=== PATIENT | female | born 1995 | race Caucasian/White ===

== ENCOUNTER 2018-08-16 16:22 | Emergency (ER) | payer BC ==
[~2018-08-16] VITALS: Ht 170.2 cm; Wt 113.2 kg
[2018-08-16 16:23] VITALS: BP 141/81
== END 2018-08-16 17:33 | disposition home or self-care (01) ==
LOC: M ED 16:22
DX: Z32.02 Encounter for pregnancy test, result negative (principal); F41.9 Anxiety disorder, unspecified; Z72.0 Tobacco use; Z97.5 Presence of (intrauterine) contraceptive device

== ENCOUNTER 2018-10-10 22:44 | Emergency (ER) | payer BC, OTHER ==
[~2018-10-10] VITALS: Ht 170.2 cm; Wt 113.6 kg
[2018-10-10 23:38] LABS: BASO # 0.1 10^3/uL (0.0-0.2); BASO % 0.6 % (0.0-1.0); EOS # 0.3 10^3/uL (0.0-0.50); EOS % 2.2 % (0.0-3.0); HEMATOCRIT 41.6 % (36.0-47.0); HEMOGLOBIN 14.6 g/dl (12.0-15.5); LYMPH # 3.5 10^3/uL (1.5-6.5); LYMPH % 30.8 % (24.0-44.0); MEAN CORPUSCULAR HEMOGLOBIN 31.2 pg (27.0-33.0); MEAN CORPUSCULAR HGB CONC 35.1 g/dl (32.0-36.5); MEAN CORPUSCULAR VOLUME 88.9 fl (80.0-96.0); MONO # 0.7 10^3/uL (0.0-0.8); MONO % 6.1 % (0.0-5.0); NEUTROPHILS # 6.8 10^3/uL (1.8-7.7); NEUTROPHILS % 59.9 % (36.0-66.0); PLATELET COUNT, AUTOMATED 280 10^3/uL (150-450); RED BLOOD COUNT 4.68 10^6/uL (4.00-5.40); WHITE BLOOD COUNT 11.4 10^3/uL (4.0-10.0)
[2018-10-10 23:58] LABS: HCG, SERUM QUALITATIVE NEGATIVE (NEGATIVE)
[2018-10-11 00:03] LABS: ALBUMIN 3.9 GM/DL (3.2-5.2); ALT/SGPT 54 U/L (12-78); BILIRUBIN,DIRECT 0.1 MG/DL (0.0-0.2); BILIRUBIN,TOTAL 0.4 MG/DL (0.2-1.0); BLOOD UREA NITROGEN 13 MG/DL (7-18); CARBON DIOXIDE LEVEL 23 MEQ/L (21-32); CHLORIDE LEVEL 111 MEQ/L (98-107); CREATININE FOR GFR 0.82 MG/DL (0.55-1.30); GLOMERULAR FILTRATION RATE > 60.0 (>60); GLUCOSE, FASTING 145 MG/DL (70-100); LIPASE 129 U/L (73-393); POTASSIUM SERUM 3.8 MEQ/L (3.5-5.1); SODIUM LEVEL 143 MEQ/L (136-145); TOTAL PROTEIN 7.3 GM/DL (6.4-8.2)
[2018-10-11 02:01] LABS: CHLAMYDIA DNA AMPLIFICATION NEGATIVE (NEGATIVE); GC DNA AMPLIFICATION NEGATIVE (NEGATIVE)
--- NOTE | 2018-10-11 02:22 | REPVR ---
EXAM: US Pelvis Complete, Transabdominal and US Pelvis, Transvaginal EXAM DATE/TIME: 10/11/2018 12:52 AM CLINICAL HISTORY: 23 years old, female; Pelvic pain. Evaluate IUD placement. TECHNIQUE: Imaging protocol: Real-time transabdominal and transvaginal pelvic ultrasound (complete) with image documentation. Transvaginal imaging was used for better evaluation of the endometrium and adnexa. COMPARISON: No relevant prior studies available. FINDINGS: Uterus/cervix: The anteverted uterus measures 7.8 cm x 3.8 cm x 5 cm. No myometrial mass is identified. The endometrium measures 3 mm in thickness. An intrauterine device is noted in the endometrial canal, which appears appropriately positioned from the images obtained. There is a trace amount of fluid in the endocervical canal. Right adnexa: The right ovary was not visualized due to obscuration by intestinal gas. Left adnexa: The left ovary was not visualized due to obscuration by intestinal gas. Free fluid: No free fluid is visualized in the pelvis from images obtained. Bladder: Not distended for optimal evaluation. IMPRESSION: Intrauterine device in the endometrial canal, which appears appropriately positioned. Electronically signed by: Jonn Manzanares On 10/11/2018 02:22:24 AM
[2018-10-11] MEDS ORDERED: KETOROLAC TROMETHAMINE 10 MG TAB PO ONE (02:30)
[2018-10-11] MEDS ORDERED: KETO10TAB PO (02:43)
[2018-10-11 02:50] VITALS: BP 129/81
== END 2018-10-11 02:52 | disposition home or self-care (01) ==
LOC: M ED 22:44
DX: R10.2 Pelvic and perineal pain (principal); Z72.0 Tobacco use; Z97.5 Presence of (intrauterine) contraceptive device

== ENCOUNTER 2019-04-21 18:53 | Emergency (ER) | payer OTHER ==
[~2019-04-21] VITALS: Ht 170.2 cm; Wt 125.0 kg
[~2019-04-21 18:53] MED LIST: KETO10TAB PO
[2019-04-21 18:54] VITALS: BP 135/75
== END 2019-04-21 21:14 | disposition home or self-care (01) ==
LOC: M ED 18:53
DX: Z32.01 Encounter for pregnancy test, result positive (principal); E66.9 Obesity, unspecified; F41.9 Anxiety disorder, unspecified; F17.200 Nicotine dependence, unspecified, uncomplicated

== ENCOUNTER → 2019-04-23 | Outpatient (CLI) | payer OTHER | LOC: M LAB 17:46 | PROVIDERS: ATTEND Student in an Organized Health Care Education/Training Program | DX: Z32.00 Encounter for pregnancy test, result unknown (principal) ==

== ENCOUNTER 2019-05-07 23:36 | Emergency (ER) | payer OTHER ==
[~2019-05-07] VITALS: Ht 170.2 cm; Wt 128.5 kg
[2019-05-07 23:37] VITALS: BP 140/78
[2019-05-07] MEDS ORDERED: PREN1CHW6 PO (23:49)
[2019-05-08 00:44] LABS: BASO # 0.1 10^3/uL (0.0-0.2); BASO % 0.5 % (0.0-1.0); EOS # 0.2 10^3/uL (0.0-0.5); EOS % 1.5 % (0.0-3.0); HEMATOCRIT 40.8 % (36.0-47.0); HEMOGLOBIN 13.8 g/dl (12.0-15.5); LYMPH # 3.5 10^3/uL (1.5-5.0); LYMPH % 27.7 % (24.0-44.0); MEAN CORPUSCULAR HEMOGLOBIN 30.1 pg (27.0-33.0); MEAN CORPUSCULAR HGB CONC 33.8 g/dl (32.0-36.5); MEAN CORPUSCULAR VOLUME 89.1 fl (80.0-96.0); MONO # 0.7 10^3/uL (0.0-0.8); MONO % 5.9 % (0.0-5.0); NEUTROPHILS % 63.9 % (36.0-66.0); PLATELET COUNT, AUTOMATED 267 10^3/uL (150-450); RED BLOOD COUNT 4.58 10^6/uL (4.00-5.40); WHITE BLOOD COUNT 12.5 10^3/uL (4.0-10.0)
[2019-05-08 01:38] LABS: ALBUMIN 3.9 GM/DL (3.2-5.2); ALT/SGPT 89 U/L (12-78); BILIRUBIN,DIRECT 0.1 MG/DL (0.0-0.2); BILIRUBIN,TOTAL 0.4 MG/DL (0.2-1.0); BLOOD UREA NITROGEN 10 MG/DL (7-18); CALCIUM LEVEL 9.1 MG/DL (8.5-10.1); CARBON DIOXIDE LEVEL 27 MEQ/L (21-32); CHLORIDE LEVEL 104 MEQ/L (98-107); CREATININE FOR GFR 0.71 MG/DL (0.55-1.30); GLOMERULAR FILTRATION RATE > 60.0 (>60); GLUCOSE, FASTING 132 MG/DL (70-100); HCG, SERUM QUANTITATIVE 14884 MIU/ML; LIPASE 110 U/L (73-393); POTASSIUM SERUM 3.8 MEQ/L (3.5-5.1); SODIUM LEVEL 139 MEQ/L (136-145)
--- NOTE | 2019-05-08 02:37 | REPVR ---
PROCEDURE INFORMATION: Exam: US First Trimester, Transabdominal and US , Transvaginal Exam date and time: 05/08/2019 2:09 AM Age: 23 years old Clinical indication: complicated by abdominal or pelvic pain; Lower; First trimester; Gestational age: 5w 6d; ; Additional info: Lower pelvic pain TECHNIQUE: Imaging protocol: Real-time transabdominal obstetrical ultrasound of the maternal pelvis and a first trimester , less than 14 weeks 0 days, with image documentation. Transvaginal imaging was used for better evaluation of the fetus and adnexa. COMPARISON: US PELVIC NON-OB COMPLETE 10/11/2018 12:47 AM FINDINGS: GESTATION: Gestation: There is a single intrauterine gestation and a visible yolk sac. Heart rate: 104 bpm Placenta: Unremarkable for the gestational age. No subchorionic bleed. Amniotic fluid: Amniotic and coelomic fluid are normal for gestational age. BIOMETRY: Estimated gestational age by US: 5 weeks 6 days [place]-Rump length: 0.24 cm Estimated due date by US: 01/02/2020 MATERNAL: Uterus: Unremarkable. Cervix: Unremarkable. Right adnexa: The right ovary was not visualized due to obscuration by intestinal gas. Left adnexa: The left ovary was not visualized due to obscuration by intestinal gas. Intraperitoneal: No intraperitoneal free fluid. IMPRESSION: Single live intrauterine with a gestational age by ultrasound of 5 weeks 6 days and estimated due date on 01/02/2020. A 2nd trimester obstetrical ultrasound is recommended at 19-20 weeks gestational age. Electronically signed by: Jonn Manzanares On 05/08/2019 02:37:02 AM
[2019-05-08] MEDS ORDERED: MACR100C43 PO (03:44)
[2019-05-08] MEDS ORDERED: NITROFURANTOIN (MACROBID) 100 MG CAP PO ONE (03:45)
== END 2019-05-08 03:58 | disposition home or self-care (01) ==
LOC: M ED 23:36
DX: O23.41 Unspecified infection of urinary tract in pregnancy, first trimester (principal); Z3A.01 Less than 8 weeks gestation of pregnancy

== ENCOUNTER → 2019-06-02 | Outpatient (REF) | payer OTHER ==
[~2019-06-02] MED LIST changes: +MACR100C43 PO; +PREN1CHW6 PO
[2019-06-02 16:08] LABS: INFLUENZA A AMPLIFICATION NEGATIVE (NEGATIVE); INFLUENZA B AMPLIFICATION POSITIVE (NEGATIVE)
== END ==
LOC: M LAB REF 15:12
PROVIDERS: ATTEND Physician Assistant
DX: J11.1 Influenza due to unidentified influenza virus with other respiratory manifestations (principal)

== ENCOUNTER → 2019-06-23 | Outpatient (CLI) | payer OTHER ==
--- NOTE | 2019-06-25 06:49 | ECGEPIP ---
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
== END ==
LOC: M EKG 15:06
PROVIDERS: ATTEND Nurse Practitioner Women's Health
DX: O24.111 Pre-existing type 2 diabetes mellitus, in pregnancy, first trimester (principal); E11.9 Type 2 diabetes mellitus without complications; Z3A.12 12 weeks gestation of pregnancy

== ENCOUNTER 2019-06-30 10:21 | Emergency (ER) | payer OTHER ==
[~2019-06-30] VITALS: Ht 170.2 cm; Wt 124.2 kg
[2019-06-30 10:21] VITALS: BP 133/66
[2019-06-30] MEDS ORDERED: NITR100C2 (10:28)
[2019-06-30] MEDS ORDERED: ASPI1CHW2 (10:28)
[2019-06-30] MEDS ORDERED: CEPH500C (10:28)
[2019-06-30] MEDS ORDERED: LIDOCAINE 2% MDV 20 ML VIAL SC ONE (10:45)
== END 2019-06-30 11:29 | disposition home or self-care (01) ==
LOC: M ED 10:21
DX: O99.712 Diseases of the skin and subcutaneous tissue complicating pregnancy, second trimester (principal); L02.01 Cutaneous abscess of face; Z79.82 Long term (current) use of aspirin; Z79.899 Other long term (current) drug therapy; Z3A.00 Weeks of gestation of pregnancy not specified

== ENCOUNTER 2019-07-04 14:16 | Emergency (ER) | payer OTHER ==
[~2019-07-04] VITALS: Ht 170.2 cm; Wt 121.5 kg
[~2019-07-04 14:16] MED LIST changes: +ASPI1CHW2; +CEPH500C; +NITR100C2
[2019-07-04 14:17] VITALS: BP 139/75
== END 2019-07-04 14:47 | disposition home or self-care (01) ==
LOC: M ED 14:16
DX: Z48.01 Encounter for change or removal of surgical wound dressing (principal)

== ENCOUNTER 2019-08-24 18:36 | Outpatient (CLI) | payer OTHER ==
[2019-08-24 18:57] VITALS: BP 131/61
--- NOTE | 2019-08-24 19:25 | IPNPDOC ---
Text Note Date of Service The patient was seen on 08/24/19. NOTE Patient is 24yo at 21wks. C/o nausea and tiredness and "sugars being off". No contractions. No loss of fluid or bleeding. FG Log: Fasting <100, PP 120s with 1 at 150 PE: VS WNL GEN NAD, Comfortable SVE: closed/thick/high FHT: 150s A/P: Fetus reassuring. Patient not in labor and no rupture of membranes. Patient given labor precautions, rupture of membranes precautions and hydration precautions. Sent back to ER for further DM evaluation. From my standpoint, DM appears controlled. Possibly viral illness. VS,Fishbone, I+O VS, Fishbone, I+O Vital Signs Date Time Temp Pulse Resp B/P (MAP) Pulse Ox O2 Delivery O2 Flow Rate FiO2 08/24/19 18:57 98.2 90 18 131/61 (84) Elisa Donaldson MD Aug 24, 2019 19:25
[2019-08-24] MEDS ORDERED: PREN27TA3 (19:51)
[2019-08-24] MEDS ORDERED: INSUN (19:51)
== END 2019-08-24 19:20 | disposition other institution (70) ==
LOC: M LDO 18:36
PROVIDERS: ATTEND Obstetrics & Gynecology
DX: O26.892 Other specified pregnancy related conditions, second trimester (principal); R11.0 Nausea; R51 Headache; Z3A.21 21 weeks gestation of pregnancy
CPT/HCPCS: G0378; G0463

== ENCOUNTER 2019-08-24 19:39 | Emergency (ER) | payer OTHER ==
[~2019-08-24] VITALS: Ht 170.2 cm; Wt 126.9 kg
[2019-08-24] MEDS ORDERED: PREN27TA3 (19:51)
[2019-08-24] MEDS ORDERED: INSUN (19:51)
[2019-08-24 21:20] LABS: BASO # 0.1 10^3/uL (0.0-0.2); BASO % 0.3 % (0.0-1.0); EOS # 0.2 10^3/uL (0.0-0.5); EOS % 1.2 % (0.0-3.0); HEMATOCRIT 36.9 % (36.0-47.0); HEMOGLOBIN 12.5 g/dl (12.0-15.5); LYMPH # 3.7 10^3/uL (1.5-5.0); LYMPH % 22.8 % (24.0-44.0); MEAN CORPUSCULAR HEMOGLOBIN 29.6 pg (27.0-33.0); MEAN CORPUSCULAR HGB CONC 33.9 g/dl (32.0-36.5); MEAN CORPUSCULAR VOLUME 87.4 fl (80.0-96.0); MONO # 0.8 10^3/uL (0.0-0.8); NEUTROPHILS # 11.3 10^3/uL (1.5-8.5); NEUTROPHILS % 70.1 % (36.0-66.0); PLATELET COUNT, AUTOMATED 290 10^3/uL (150-450); RED BLOOD COUNT 4.22 10^6/uL (4.00-5.40); WHITE BLOOD COUNT 16.1 10^3/uL (4.0-10.0)
[2019-08-24 23:05] VITALS: BP 134/68
== END 2019-08-24 23:06 | disposition home or self-care (01) ==
LOC: M ED 19:39
DX: O26.892 Other specified pregnancy related conditions, second trimester (principal); K52.9 Noninfective gastroenteritis and colitis, unspecified; O99.63 Diseases of the digestive system complicating the puerperium; O24.429 Gestational diabetes mellitus in childbirth, unspecified control; Z79.4 Long term (current) use of insulin; Z3A.21 21 weeks gestation of pregnancy

== ENCOUNTER → 2019-12-07 | Outpatient (CLI) | payer OTHER ==
[~2019-12-07] MED LIST changes: +IBUP80TA PO; +INSUN SC; +ONDA4TAB6 PO; +PREN27TA3
--- NOTE | 2019-12-07 10:02 | REPVR ---
PROCEDURE INFORMATION: Exam: US Biophysical Profile Without Non-Stress Test Exam date and time: 12/07/2019 9:28 AM Age: 24 years old Clinical indication: Abnormal findings; Abnormal radiological screening; Third; ; Additional info: Non- reactive nst TECHNIQUE: Imaging protocol: US biophysical profile without non-stress testing. COMPARISON: US PELVIC NON-OB COMPLETE 10/11/2018 12:47 AM FINDINGS: heart rate: 130 bpm. Presentation: Cephalic. Placenta: Anterior. No previa. Amniotic fluid index: 12.3 cm (deepest pocket 4.5 cm). BIOPHYSICAL PROFILE: Breathin/2 Gross body movements: 2/2 tone: 2/2 Qualitative amniotic fluid: 2/2 Biophysical Profile Score: 8/8 DOPPLER: Umbilical artery Doppler: S/D ratio 2.5. MATERNAL ANATOMY: Cervix: Closed, 3.6 cm in length. IMPRESSION: Biophysical profile score is 8 out of 8. Electronically signed by: Alfa Cameron On 12/07/2019 10:02:10 AM
== END ==
LOC: M RAD 09:19
PROVIDERS: ATTEND Obstetrics & Gynecology
DX: Z34.83 Encounter for supervision of other normal pregnancy, third trimester (principal); Z3A.36 36 weeks gestation of pregnancy

== ENCOUNTER 2019-12-29 12:00 | Inpatient (IN) | payer OTHER ==
[~2019-12-29] VITALS: Ht 170.2 cm; Wt 133.4 kg
[2019-12-29] VITALS (10 sets, daily range): BP systolic 108–133; BP diastolic 53–75
[~2019-12-29 12:00] MED LIST changes: -IBUP80TA PO; -ONDA4TAB6 PO
[2019-12-29] MEDS ORDERED: INSUN SC (12:28)
[2019-12-29] MEDS ORDERED: PENICILLIN G POTASSIUM IV 5 MU in D5W MINI-BAG PLUS 100 ML IV STA (12:36)
[2019-12-29] MEDS: miSOPROStol 50 MCG 1/2 TAB (S0191) PO SCH ×3 (13:27→22:16)
[2019-12-29 13:29] LABS: HEMOGLOBIN 13.1 g/dl (12.0-15.5); MEAN CORPUSCULAR HEMOGLOBIN 29.8 pg (27.0-33.0); MEAN CORPUSCULAR HGB CONC 34.5 g/dl (32.0-36.5); MEAN CORPUSCULAR VOLUME 86.6 fl (80.0-96.0); PLATELET COUNT, AUTOMATED 278 10^3/uL (150-450); RED BLOOD COUNT 4.39 10^6/uL (4.00-5.40); WHITE BLOOD COUNT 12.3 10^3/uL (4.0-10.0)
[2019-12-29] MEDS ORDERED: INSULIN REGULAR IN 0.9 % NACL 100 UNIT in IV 1 EA IV SCH ×2 (13:40)
--- NOTE | 2019-12-29 13:40 | HPEPDOC ---
Obstetrical History & Physical General Date of Admission Dec 29, 2019 at 12:00 History of Present Illness 24yo G1 @ 39w3d presents for IOL for A2GDM. Has been using insulin during and also smoking 5 cigs daily. 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 Insulin Human NPH (Novolin N) 100 Unit/1 Ml Vial, 12 UNITS SC DAILY Pt states she takes daily at 1130 before lunch. Miscellaneous Medications Aspirin (Aspirin) 81 Mg Tab.chew Pnv,Calcium 72/Iron/Folic Acid ( Vitamin Plus Low Iron) 1 Each Tablet Physical Examination Physical Examination GENERAL: Alert and oriented times three. BREAST: . ABDOMEN: Gravid and non-tender to touch. FETUS: Is vertex (VTX) by sterile vaginal examination (SVE), fetus is vertex (VTX) by [place]. HEART RATE: Regular rate and rhythm. LUNGS: Clear to auscultation (CTA). Laboratory Data 24H LABS Laboratory Tests 2 12/29/19 12:08: Serology Scanned Report Hepatitis B Testing Pertinent Laboratoy Data Blood Type: A+ RBC Antibody Screen: Negative HIV: Negative Hepatitis B: Negative Rapid Plasma Reagin: Nonreactive Rubella: Immune Chlamydia/Gonorrhea: Negative Group B Streptococcus: Positive Anatomy Ultrasound Placenta Location: Anterior Placenta Previa: No Vaginal Examination Dilation: None Station: -3 Cervical Consistency: Firm Cervical Position: Posterior Presentation: Cephalic presentation Assessment Variability: Moderate Accelerations: Positive Tocometer Contractions: No Assessment/Plan Assessment 24-year-old 1 at 39 weeks and 3 days here for induction of labor secondary to A2 gestational diabetes. Reassuring status Patient's been thoroughly counseled in regards to induction of labor. I've discussed medications and procedures performed in labor and delivery. She's been verbally consented for emergency surgery, blood products and anesthesia and desires to proceed with induction of labor. Will initiate her induction labor with 50 g oral misoprostol. Plan Admit and orient. 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 Diet: . Group B Streptococcus (GBS) [negative]. Labs and intravenous (IV) per unit protocol. Counseled on Pitocin and induction of labor (IOL). Lactated Ringers (LR): Bolus mL, then at mL/hr. Anticipate [normal spontaneous delivery ()]. C-S as appropriate. PAULA CANNON MD. Dec 29, 2019 13:40
[2019-12-29] MEDS: NS 1,000 ML IV SCH ×2 (14:06→22:16)
[2019-12-29] MEDS: INSULIN IV RATE CHANGE DOCUMENTATION ML/HR XX SCH ×5 (16:23→22:19)
[2019-12-29] MEDS ORDERED: PENICILLIN G POTASSIUM IV 2.5 MU in IV 1 EA IV SCH (16:45)
[2019-12-30] VITALS (17 sets, daily range): BP systolic 98–150; BP diastolic 49–79
[2019-12-30] MEDS: miSOPROStol 50 MCG 1/2 TAB (S0191) PO SCH ×3 (02:13→09:00)
[2019-12-30] MEDS: NS 1,000 ML IV SCH ×3 (05:34→18:40)
[2019-12-30] MEDS ORDERED: BUTORPHANOL 2 MG/ML INJ (J0595) IV ONE ×2 (06:30→12:45)
[2019-12-30] MEDS ORDERED: PROMETHAZINE INJ 25 MG/ML VIAL (J2550) IV ONE ×2 (06:30→12:45)
--- NOTE | 2019-12-30 14:28 | IPNPDOC ---
Obstetrical Progress Note Date of Service Dec 30, 2019 Subjective Patient feeling very uncomfortable with ctx's. Objective Vital Signs Date Time Temp Pulse Resp B/P (MAP) Pulse Ox O2 Delivery O2 Flow Rate FiO2 12/30/19 14:17 18 12/30/19 12:26 96.8 12/30/19 12:25 74 150/70 (96) 12/29/19 12:22 96 Room Air Assessment Heart Rate (FHR): 140 Variability: Moderate Accelerations: Positive Decelerations: None Heart Rate Tracing: Category I Tocometer Contractions: Yes Frequency: irregular Sterile Vaginal Examination Dilation: 1cm Effacement (%): 80% Station: -3 Cervical Consistency: Soft Cervical Position: Posterior Postion/Presentation: Cephalic presentation (by TAUS) Assessment and Plan Status: Reassuring Group B Streptococcus: Positive Anticipate: Vaginal Delivery Additional Comments 24yo at 39+4wks admitted for IOL for Class B DM on insulin and BMI >40. Patient received 4 doses of cytotec. Cervical change from closed to now /-3. Patient has received stadol/phenergan now twice for pain control. Soriano catheter placed by MAJ Cuba CNM at 1215. Continue insulin drip with close monitoring of BG. FHRT cat I. Will continue to monitor for expectant . CHASE RAMOS DO Dec 30, 2019 14:28
[2019-12-30] MEDS ORDERED: OXYTOCIN DRIP 30 UNITS in IV 1 EA IV SCH (17:00)
[2019-12-30] MEDS ORDERED: PENICILLIN G POTASSIUM IV 5 MU in D5W MINI-BAG PLUS 100 ML IV STA (18:00)
--- NOTE | 2019-12-30 18:48 | IPNPDOC ---
Obstetrical Progress Note Date of Service Dec 30, 2019 Subjective Patient reports feeling comfortable after shower and lemus balloon out at 1633. She is tolerating regular diet. Denies need for pain medications at this time. Objective Vital Signs Date Time Temp Pulse Resp B/P (MAP) Pulse Ox O2 Delivery O2 Flow Rate FiO2 12/30/19 17:23 75 18 130/61 (84) 12/30/19 15:01 96.8 12/29/19 12:22 96 Room Air Assessment Heart Rate (FHR): 135 Variability: Moderate Accelerations: Positive Decelerations: None Heart Rate Tracing: Category I Tocometer Contractions: Yes Frequency: irregular Assessment and Plan Status: Reassuring Group B Streptococcus: Positive Additional Comments 24yo at 39+4wks admitted for IOL for Class B DM on insulin and BMI >40. Patient's lemus balloon out at 1633. SVE deferred at this time. Patient was allowed to eat and get shower. Will start PCN at this time for GBS ppx. Will start pitocin protocol at this time. Plan for AROM after 2nd dose of PCN in, consider internalization at that time for closer monitoring. Patient counseled she may have epidural if desired. Patient desires to proceed, safe to continue. CHASE RAMOS DO Dec 30, 2019 18:48
[2019-12-30] MEDS ORDERED: FENTANYL 2MCG/ML ROPIVACAINE 0.2% IN 0.9% NACL 100ML IVBAG As Ordered ONE (20:23)
[2019-12-30] MEDS ORDERED: PENICILLIN 100,000 U/ML SYRINGE 2.5MU As Ordered ONE (22:24)
--- NOTE | 2019-12-30 23:51 | IPNPDOC ---
Obstetrical Progress Note Date of Service Dec 30, 2019 Subjective Patient having significant pain despite epidural in place. She localizes the pain to her lower abdomen. Objective Vital Signs Date Time Temp Pulse Resp B/P (MAP) Pulse Ox O2 Delivery O2 Flow Rate FiO2 12/30/19 18:34 97.0 88 18 117/61 (79) 12/29/19 12:22 96 Room Air Assessment Heart Rate (FHR): 150 Variability: Moderate Accelerations: None Decelerations: None Heart Rate Tracing: Category I Tocometer Contractions: Yes Frequency: every 2-2 min. Sterile Vaginal Examination Dilation: 7 cm Effacement (%): 100% Station: -1 Cervical Consistency: Soft Cervical Position: Anterior Postion/Presentation: Cephalic presentation Assessment and Plan Status: Reassuring Group B Streptococcus: Positive Anticipate: Vaginal Delivery Additional Comments Patient has made cervical change. BBOW present. Will not AROM at this time until anesthesia can get patient pain relief. Will continue to closely monitor for expectant . CHASE RAMOS DO Dec 30, 2019 23:51
--- NOTE | 2019-12-31 00:54 | IPNPDOC ---
Obstetrical Progress Note Date of Service Dec 31, 2019 Subjective Patient now comfortable with epidural. Objective Vital Signs Date Time Temp Pulse Resp B/P (MAP) Pulse Ox O2 Delivery O2 Flow Rate FiO2 12/30/19 18:34 97.0 88 18 117/61 (79) 12/29/19 12:22 96 Room Air Assessment Heart Rate (FHR): 120 Variability: Moderate Accelerations: Positive Decelerations: Variable (during 2nd epidural placement) Heart Rate Tracing: Category I Tocometer Contractions: Yes Frequency: every 2-5 min. Sterile Vaginal Examination Dilation: 9 cm Effacement (%): 100% Station: 0 Cervical Consistency: Soft Cervical Position: Anterior Postion/Presentation: Cephalic presentation Assessment and Plan Status: Reassuring Group B Streptococcus: Positive Anticipate: Vaginal Delivery Additional Comments FHRT notable for variable decels down to the 50s while receiving 2nd epidural for pain mgmt. Pitocin turned off and patient repositioned with return of FHRT to cat I. Once patient was comfortable, SVE revealed 9/c/0. AROM performed notable for clear fluid. Will keep pitocin off at this time but will restart if ctx's become inadequate. Patient desires to proceed, safe to continue. CHASE RAMOS DO Dec 31, 2019 00:54
[2019-12-31] MEDS ORDERED: DIBUCAINE 1% OINTMENT 30GM TOP PRN (03:30)
[2019-12-31] MEDS ORDERED: IBUPROFEN 600MG TAB PO PRN (03:30)
[2019-12-31] MEDS ORDERED: ACETAMINOPHEN TAB 650MG DOSE (2X325MG) PO PRN (03:30)
[2019-12-31] MEDS ORDERED: METHYLERGONOVINE MALEATE 0.2 MG TAB PO PRN (03:30)
[2019-12-31] MEDS ORDERED: ACETAMINOPHEN 500 MG TAB PO PRN (03:30)
--- NOTE | 2019-12-31 03:48 | DNPDOC ---
[facility] Delivery Note Delivery Note DATE OF DELIVERY: 12/31/2019 PREDELIVERY DIAGNOSIS: 39+5/7 weeks' gestation and labor. POST DELIVERY DIAGNOSIS: Delivered. PROCEDURE: Spontaneous vaginal delivery COMMUNICATION COORDINATOR: Dr. Chase Ramos ANESTHESIA: Epidural ESTIMATED BLOOD LOSS: 100 mL. FINDINGS: 6 pound 3 ounce 2810g male infant, Score 6/7/9, nuchal cord times x1, terminal meconium noted. DELIVERY SUMMARY: 24yo G1 admitted for IOL for Class B DM on insulin and BMI >40. Patient had progressed to complete dilation and started pushing with RN. Provider not notified of patient's status until delivery of head. Provider arrived to room to see RN holding head on perineum. Gloves were quickly doned by provider and the restituted to LOT with right shoulder anterior position. Anterior shoulder delivered spontaneously followed by corpus with 1 maternal push. Nuchal cord x1 appreciated. Terminal meconium appreciated. Infant placed on maternal abdomen for stimulation by awaiting [place] team. Infant was noted to have pale color, poor tone, and no cry. Three vessel cord clamped x2 and cut by FOB. taken to warmer by [place] team for further resuscitation. Pitocin IV bolus started. Third stage spontaneous with intact placenta. Fundal massage performed until hemostasis and firm uterine tone achieved. Inspection revealed a small vaginal floor abrasion that was not hemostatic therefore repaired using 3-0 vicryl in a [id number] suture with hemostasis achieved. EBL 100ml. Mother and stable upon my leaving the room. CHASE RAMOS DO Dec 31, 2019 03:48
[2019-12-31] MEDS: IBUPROFEN 800 MG TAB PO PRN (05:16)
[2019-12-31] MEDS: DOCUSATE SODIUM 100 MG CAP PO SCH ×2 (10:48→20:18)
[2019-12-31] MEDS: PRENATAL VITAMINS CHEWABLE TABLET PO SCH (10:48)
[2019-12-31] MEDS ORDERED: FIORICET TAB PO ONE ×2 (11:15→15:45)
[2019-12-31 15:00] VITALS: BP 139/78
[2019-12-31 18:00] VITALS: BP 134/77
[2019-12-31] MEDS: FIORICET TAB PO PRN (20:18)
[2019-12-31] MEDS ORDERED: MORPHINE 2 MG/ML 1ML VIAL (J2270) IV ONE (21:45)
[2020-01-01] MEDS: FIORICET TAB PO PRN ×2 (05:31→10:55)
[2020-01-01 06:00] VITALS: BP 137/83
[2020-01-01 06:39] LABS: MEAN CORPUSCULAR HEMOGLOBIN 29.2 pg (27.0-33.0); MEAN CORPUSCULAR HGB CONC 33.3 g/dl (32.0-36.5); MEAN CORPUSCULAR VOLUME 87.5 fl (80.0-96.0); PLATELET COUNT, AUTOMATED 252 10^3/uL (150-450); RED BLOOD COUNT 3.77 10^6/uL (4.00-5.40); WHITE BLOOD COUNT 12.2 10^3/uL (4.0-10.0)
[2020-01-01 06:55] LABS: HEMOGLOBIN A1c 5.7 %
[2020-01-01 07:06] LABS: BLOOD UREA NITROGEN 7 MG/DL (7-18); CALCIUM LEVEL 8.6 MG/DL (8.5-10.1); CARBON DIOXIDE LEVEL 24 MEQ/L (21-32); CHLORIDE LEVEL 109 MEQ/L (98-107); CREATININE FOR GFR 0.56 MG/DL (0.55-1.30); GLOMERULAR FILTRATION RATE > 60.0 (>60); GLUCOSE, FASTING 138 MG/DL (70-100); POTASSIUM SERUM 3.4 MEQ/L (3.5-5.1); SODIUM LEVEL 140 MEQ/L (136-145)
[2020-01-01] MEDS: PRENATAL VITAMINS CHEWABLE TABLET PO SCH (10:54)
[2020-01-01] MEDS: DOCUSATE SODIUM 100 MG CAP PO SCH ×2 (10:54→20:52)
[2020-01-01] MEDS ORDERED: LR 1,000 ML IV SCH (14:00)
[2020-01-01] MEDS: IBUPROFEN 800 MG TAB PO PRN (15:41)
[2020-01-01 17:55] VITALS: BP 133/63
[2020-01-02] MEDS: FIORICET TAB PO PRN (01:56)
[2020-01-02 06:06] VITALS: BP 170/81
[2020-01-02 06:07] VITALS: BP 151/73
[2020-01-02] MEDS: IBUPROFEN 800 MG TAB PO PRN ×2 (06:57→18:02)
--- NOTE | 2020-01-02 07:14 | IPNPDOC ---
Obstetrical Progress Note Date of Service Jan 02, 2020 Subjective pp day 2 had blood patch for spinal headache now elevated bp asymptomatic . plan do pre e profile moniter bp today Objective Vital Signs Date Time Temp Pulse Resp B/P (MAP) Pulse Ox O2 Delivery O2 Flow Rate FiO2 01/02/20 06:07 151/73 (99) 01/02/20 06:06 97.8 84 18 97 Room Air Srikanth Oliveira MD Jan 02, 2020 07:14
[2020-01-02 08:02] LABS: HEMATOCRIT 33.2 % (36.0-47.0); MEAN CORPUSCULAR HEMOGLOBIN 29.2 pg (27.0-33.0); MEAN CORPUSCULAR HGB CONC 33.1 g/dl (32.0-36.5); MEAN CORPUSCULAR VOLUME 88.1 fl (80.0-96.0); PLATELET COUNT, AUTOMATED 247 10^3/uL (150-450); RED BLOOD COUNT 3.77 10^6/uL (4.00-5.40); WHITE BLOOD COUNT 11.5 10^3/uL (4.0-10.0)
[2020-01-02 08:23] LABS: ALT/SGPT 21 U/L (12-78); BILIRUBIN,TOTAL 0.2 MG/DL (0.2-1.0); GLOMERULAR FILTRATION RATE > 60.0 (>60); LDH LACTATE DEHYDROGENASE 130 U/L (84-246); URIC ACID 3.8 MG/DL (2.6-6.0)
[2020-01-02] MEDS: DOCUSATE SODIUM 100 MG CAP PO SCH ×2 (08:55→20:40)
[2020-01-02] MEDS: PRENATAL VITAMINS CHEWABLE TABLET PO SCH (08:55)
[2020-01-02 09:33] LABS: AMORPHOUS SEDIMENT SMALL (NEGATIVE); APPEARANCE, URINE CLOUDY (CLEAR); BACTERIA, URINE AUTO 1+ (NEGATIVE); BILIRUBIN, URINE AUTO NEGATIVE (NEGATIVE); BLOOD, URINE BLOOD 3+ (NEGATIVE); COLOR, URINE YELLOW (YELLOW); GLUCOSE, URINE (UA) AUTO NEGATIVE (NEGATIVE); KETONE, URINE AUTO NEGATIVE (NEGATIVE); LEUKOCYTE ESTERASE, URINE AUTO 3+ (NEGATIVE); NITRITE, URINE AUTO NEGATIVE (NEGATIVE); PROTEIN, URINE AUTO 2+ mg/dL (NEGATIVE); RBC, URINE AUTO TNTC /HPF (0-3); SPECIFIC GRAVITY URINE AUTO 1.017 (1.002-1.035); SQUAMOUS EPITHELIAL CELL UR AU 5 /HPF (0-6); TRANSITIONAL EPITHELIAL AUTO 7 /HPF; UROBILINOGEN, URINE AUTO 0.2 mg/dL (0.0-2.0); WBC, URINE AUTO TNTC /HPF (0-3)
[2020-01-02 09:43] LABS: TOTAL PROTEIN,RANDOM URINE 59.4 MG/DL (0.0-12.0)
[2020-01-02 10:00] VITALS: BP 138/87
[2020-01-02 14:00] VITALS: BP 123/61
--- NOTE | 2020-01-02 16:01 | IPN ---
DATE: 12/31/2019 This is a 24-year-old 1, now para 1, who was at 39 weeks and 3 days of gestation, presented for induction of labor. She is an AGDM2. She has been using insulin during her , and also she smokes five cigarettes a day. Her risk factors are that she is an AGDM2 and she is a current smoker. Present she is on Novolin NPH 10 units subcutaneous every night and 12 units subcutaneous daily every morning. She was taking aspirin for prophylaxis and calcium, folic acid, and vitamins. She suffers from migraines, and she was taking Fioricet, which seemed to rose the headache. She was GBS negative, not requiring antibiotic prophylaxis. She had a spontaneous vaginal delivery with epidural in place, a live- male , 6 pounds 3 ounces, 2810 grams, scores 6, 7, and 9. She had a nuchal cord. There was terminal meconium noted. She had a repair of some small vaginal abrasions of inconsequence. They were repaired in the usual fashion. She presently is suffering from migraine headache, and she was given Fioricet, which appeared to help with the headache. At the present time she is requested more Fioricet, and we will order on a scheduled basis Fioricet for her migraines. Her blood pressure is not available on record here, as she is being transferred from labor and delivery to unit; however, verbal communication says that her blood pressures are within normal limits. DEV
--- NOTE | 2020-01-02 16:03 | IPN ---
DATE: 01/01/2020 This lady is a 24-year-old 1, now para 1, who was admitted at 39 and 3 days for induction of labor, being an AGDM2, on insulin, smoker, and a body mass index (BMI). She had a live- male infant, spontaneous vaginal delivery, 6 pounds 3 ounces, 2810 grams, scores of 6, 7, and 9. Cord times one. Meconium at delivery. Had an epidural in place. On her second day, she had a significant spinal headache unresponsive to medications. She is presently on Fioricet two tablets every 4 for her headache plus acetaminophen up to 4 grams a day and is still suffering from her spinal headache. A consultation with anesthesia, and this morning she will be having a blood patch. We are going to hold discharge until tomorrow morning. Presently, blood pressure is 137/83. she is having pain in her head. Respirations are 17, pulse 94, and temperature is 98.8. LABORATORY WORK: Hemoglobin 11.0, hematocrit 33.0, and platelets are 252. This morning they madhu blood in order to be able to establish and do the blood patch. Her chemistry is still pending from today, including her A1c. Blood patch is going to be performed sometime today. Hopefully this will resolve her issue, and our plans are for discharge tomorrow morning. Patient expressed understanding of plan of care. A 20-minute discussion. All questions were answered. DEV
[2020-01-02 18:00] VITALS: BP 124/66
[2020-01-02 22:18] VITALS: BP 128/65
[2020-01-03 02:20] VITALS: BP 120/56
[2020-01-03 06:11] VITALS: BP 135/66
[2020-01-03 08:05] VITALS: BP 135/66
[2020-01-03] MEDS: DOCUSATE SODIUM 100 MG CAP PO SCH (09:05)
[2020-01-03] MEDS: PRENATAL VITAMINS CHEWABLE TABLET PO SCH (09:05)
--- NOTE | 2020-01-03 11:22 | IPNPDOC ---
Progress Note Date of Service: Jan 03, 2020 Day#: 3 Progress Note SUBJECT: Monroe is a 24yo PPD#3 s/p c/b spinal headache. She reports her headache has been relieved after blood patch. She reports minimal pain. Reports her lochia is decreasing. She is and supplementing with formula as infant required bili lights. OBJECTIVE: VITAL SIGNS: Within normal limits, afebrile. Alert and oriented times three. RESP: No exaggerated respiratory effort appreciated CARDS: well-perfused Abdomen: Fundus firm at U-2. Soft, NTTP. EXTREM: no edema ASSESSMENT: Monroe is a 24yo PPD#3 s/p after IOL for BMI >40 and Class B DM. She was noted to have spinal headache that was relieved with blood patch on PPD#2. She was noted to have elevated BP after blood patch with no s/s of preeclampsia and normal lab findings. Vitals within normal limits for last 24hrs, afebrile, hemodynamically stable with no evidence of infection. PLAN: 1. Discharge to home today. 2. Tylenol and Motrin for pain. 3. Encourage breast feeding with consult PRN. 4. Encourage regular diet as tolerated 5. Encourage ambulation. 6. Discussed return precautions at length 7. Counseled she will need to complete 2hr GTT 6 weeks . VS, I&O, 24H, Fishbone Vital Signs/I&O Vital Signs Date Time Temp Pulse Resp B/P (MAP) Pulse Ox O2 Delivery O2 Flow Rate FiO2 01/03/20 08:05 97.6 70 18 135/66 99 Room Air CHASE RAMOS DO Jan 03, 2020 11:22
--- NOTE | 2020-01-04 08:33 | IPN ---
DATE: 01/02/2020 24-year-old 1, now para 1, was admitted at 39 and 3 for induction of labor, gestational diabetes mellitus type 2 (aGDM 2), smoker, and on insulin. She delivered a male infant, 6 pounds 3 ounces, 2810 grams. She sustained a spinal headache for which she required a blood patch and this morning her blood pressures are 170/81 and 151/73 on repeat. She is not having any more pain and no more headaches after the blood patch, however it is unusual for her to have this elevation of blood pressure. In reviewing her blood pressures prior, she had normal range or mid range blood pressures. We will review her blood pressures over the next several hours. The possibility of preeclampsia is entertained. Blood work will be performed if needed in order to evaluate preeclampsia. Patient expressed understanding of delay of discharge. DEV
[2020-01-04] MEDS ORDERED: IBUP80TA PO (11:39)
--- NOTE | 2020-01-06 09:50 | IPN ---
DATE: 12/31/2019 This patient requested circumcision of her male . After discussing the risks and benefits of circumcision, the medical and non-medical indications, the penile block and aftercare, she expressed understanding of penile block, aftercare, and bleeding, signed the consent form, all questions were answered, 20 minute discussion. We await the clearance by the scientific artist. DEV
== END 2020-01-03 11:55 | disposition home or self-care (01) | DRG 806 ==
LOC: M LDI 12:00 → M OBS 12-31 15:00
PROVIDERS: ADMIT Obstetrics & Gynecology; ATTEND Obstetrics & Gynecology
PROC: 3E0DXGC Introduction of Other Therapeutic Substance into Mouth and Pharynx, External Approach (ICD-10-PCS; 2019-12-29)
PROC: 3E033VJ Introduction of Other Hormone into Peripheral Vein, Percutaneous Approach (ICD-10-PCS; 2019-12-29)
PROC: 10E0XZZ Delivery of Products of Conception, External Approach (ICD-10-PCS; principal; 2019-12-31)
DX: O24.424 Gestational diabetes mellitus in childbirth, insulin controlled (principal); Z37.0 Single live birth; Z68.41 Body mass index [BMI] 40.0-44.9, adult; Z3A.39 39 weeks gestation of pregnancy; F17.210 Nicotine dependence, cigarettes, uncomplicated; O99.334 Smoking (tobacco) complicating childbirth; O77.0 Labor and delivery complicated by meconium in amniotic fluid; O69.81X0 Labor and delivery complicated by cord around neck, without compression, not applicable or unspecified

== ENCOUNTER 2020-01-04 11:28 | Emergency (ER) | payer OTHER ==
[~2020-01-04] VITALS: Ht 170.2 cm; Wt 128.6 kg
[2020-01-04] MEDS ORDERED: IBUP80TA PO (11:39)
[2020-01-04] MEDS ORDERED: METOCLOPRAMIDE INJ 10MG/2ML VIAL (J2765 PER 1) IV ONE (12:45)
[2020-01-04] MEDS ORDERED: FIORICET TAB PO ONE (12:45)
[2020-01-04] MEDS ORDERED: NS 1,000 ML IV ONE (12:45)
--- NOTE | 2020-01-04 13:28 | REPVR ---
PROCEDURE INFORMATION: Exam: CT Head Without Contrast Exam date and time: 01/04/2020 1:20 PM Age: 24 years old Clinical indication: Pain; Headache; Additional info: Headache, vomiting TECHNIQUE: Imaging protocol: Computed tomography of the head without contrast. Radiation optimization: All CT scans at this facility use at least one of these dose optimization techniques: automated exposure control; mA and/or kV adjustment per patient size (includes targeted exams where dose is matched to clinical indication); or iterative reconstruction. COMPARISON: No relevant prior studies available. FINDINGS: Brain: Normal. No hemorrhage. Unremarkable white matter. No mass effect. Cerebral ventricles: No ventriculomegaly. Bones/joints: Unremarkable. No acute fracture. Paranasal sinuses: Visualized sinuses are unremarkable. No fluid levels. Mastoid air cells: Visualized mastoid air cells are well aerated. Soft tissues: Unremarkable. IMPRESSION: No acute intracranial abnormality. Electronically signed by: Megan Adames On 01/04/2020 13:28:26 PM
[2020-01-04 13:32] LABS: BASO % 0.4 % (0.0-1.0); EOS # 0.4 10^3/uL (0.0-0.5); EOS % 3.2 % (0.0-3.0); HEMATOCRIT 35.6 % (36.0-47.0); HEMOGLOBIN 11.8 g/dl (12.0-15.5); LYMPH # 2.1 10^3/uL (1.5-5.0); LYMPH % 18.9 % (24.0-44.0); MEAN CORPUSCULAR HGB CONC 33.1 g/dl (32.0-36.5); MEAN CORPUSCULAR VOLUME 87.5 fl (80.0-96.0); MONO # 0.5 10^3/uL (0.0-0.8); MONO % 4.5 % (0.0-5.0); NEUTROPHILS % 72.5 % (36.0-66.0); PLATELET COUNT, AUTOMATED 296 10^3/uL (150-450); RED BLOOD COUNT 4.07 10^6/uL (4.00-5.40)
[2020-01-04 14:01] LABS: ALBUMIN 2.8 GM/DL (3.2-5.2); ALT/SGPT 29 U/L (12-78); BILIRUBIN,DIRECT < 0.1 MG/DL (0.0-0.2); BILIRUBIN,TOTAL 0.3 MG/DL (0.2-1.0); BLOOD UREA NITROGEN 6 MG/DL (7-18); CALCIUM LEVEL 9.2 MG/DL (8.5-10.1); CARBON DIOXIDE LEVEL 26 MEQ/L (21-32); CHLORIDE LEVEL 106 MEQ/L (98-107); CREATININE FOR GFR 0.55 MG/DL (0.55-1.30); GLOMERULAR FILTRATION RATE > 60.0 (>60); GLUCOSE, FASTING 110 MG/DL (70-100); POTASSIUM SERUM 4.2 MEQ/L (3.5-5.1); SODIUM LEVEL 138 MEQ/L (136-145); TOTAL PROTEIN 6.2 GM/DL (6.4-8.2)
[2020-01-04 16:20] VITALS: BP 142/85
== END 2020-01-04 16:27 | disposition home or self-care (01) ==
LOC: M ED 11:28
DX: O89.4 Spinal and epidural anesthesia-induced headache during the puerperium (principal); R11.2 Nausea with vomiting, unspecified; E11.9 Type 2 diabetes mellitus without complications; F17.200 Nicotine dependence, unspecified, uncomplicated
CPT/HCPCS: 70450; 80048; 80076; 85025; 96361; 96374; 99284; J2765

== ENCOUNTER 2020-01-21 06:36 | Emergency (ER) | payer OTHER ==
[~2020-01-21] VITALS: Ht 170.2 cm; Wt 124.2 kg
[~2020-01-21 06:36] MED LIST changes: +IBUP80TA PO
[2020-01-21] MEDS ORDERED: NS 1,000 ML IV ONE (07:00)
[2020-01-21] MEDS ORDERED: GI COCKTAIL 50ML BTL(HYOSCYAMINE/MAALOX/LIDOCAINE VISCOUS)(1:3:1) PO ONE (07:00)
[2020-01-21] MEDS ORDERED: ONDANSETRON 4MG/2ML VIAL IV ONE (07:00)
[2020-01-21 07:33] LABS: BASO % 0.3 % (0.0-1.0); EOS # 0.3 10^3/uL (0.0-0.5); EOS % 2.6 % (0.0-3.0); HEMATOCRIT 41.5 % (36.0-47.0); HEMOGLOBIN 13.8 g/dl (12.0-15.5); LYMPH % 25.8 % (24.0-44.0); MEAN CORPUSCULAR HEMOGLOBIN 28.3 pg (27.0-33.0); MEAN CORPUSCULAR HGB CONC 33.3 g/dl (32.0-36.5); MEAN CORPUSCULAR VOLUME 85.2 fl (80.0-96.0); MONO # 0.6 10^3/uL (0.0-0.8); MONO % 5.1 % (0.0-5.0); NEUTROPHILS # 7.7 10^3/uL (1.5-8.5); NEUTROPHILS % 65.7 % (36.0-66.0); PLATELET COUNT, AUTOMATED 324 10^3/uL (150-450); RED BLOOD COUNT 4.87 10^6/uL (4.00-5.40); WHITE BLOOD COUNT 11.7 10^3/uL (4.0-10.0)
[2020-01-21 08:02] LABS: ALBUMIN 3.5 GM/DL (3.2-5.2); ALT/SGPT 33 U/L (12-78); BILIRUBIN,DIRECT < 0.1 MG/DL (0.0-0.2); BILIRUBIN,TOTAL 0.3 MG/DL (0.2-1.0); CK-MB VALUE MASS < 1.0 NG/ML (<3.6); CPK CREATINE PHOSPHOKINASE 98 U/L (26-192); LIPASE 128 U/L (73-393); MB/CK RELATIVE INDEX 1.02 (< OR =4); TROPONIN I < 0.02 NG/ML (< 0.10)
--- NOTE | 2020-01-21 08:03 | REP ---
INDICATION: RUQ pain r/o choleycystitis. COMPARISON: No comparison study.. TECHNIQUE: Right upper quadrant transabdominal sonography. FINDINGS: Scanning through the right upper quadrant of the abdomen demonstrates multiple mobile echogenic gallstones within the lumen of the gallbladder. The gallbladder wall is not thickened. The gallbladder is moderately dilated, 13.3 cm in greatest dimension. Common bile duct is normal measuring 0.4 cm in greatest diameter. The liver is felt to be enlarged or least elongated in the right lobe which measures 22.9 cm in midclavicular length cranio caudally. Limited views of pancreas show no abnormality. No focal liver lesion is seen. There is no evidence of ascites or right renal abnormality. The right kidney measures 12.7 x 5.3 x 3.9 cm. IMPRESSION: Cholelithiasis with dilated gallbladder. Question hepatomegaly. <Electronically signed by Bobby Christianson > 01/21/20 [id number]
--- NOTE | 2020-01-21 08:12 | ECGEPIP ---
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
[2020-01-21 08:59] VITALS: BP 131/79
--- NOTE | 2020-01-21 18:20 | ED PDOC ---
Post-Departure Follow-Up dr soares and marixa ponce faxed formal report of us for fu Cameron Cool MD Jan 21, 2020 18:20
== END 2020-01-21 09:06 | disposition home or self-care (01) ==
LOC: M ED 06:36
DX: K80.20 Calculus of gallbladder without cholecystitis without obstruction (principal); R19.7 Diarrhea, unspecified; F17.200 Nicotine dependence, unspecified, uncomplicated
CPT/HCPCS: 76705; 80047; 80076; 81001; 82550; 82553; 83690; 84484; 84702; 85025; 87086; 93005; 96361; 96374; 99284; J2405

== ENCOUNTER 2020-01-23 23:58 | Emergency (ER) | payer OTHER ==
[~2020-01-23] VITALS: Ht 170.2 cm; Wt 124.5 kg
[2020-01-24] MEDS ORDERED: ONDANSETRON 4MG/2ML VIAL IV ONE (00:45)
[2020-01-24] MEDS ORDERED: MORPHINE 4 MG/ML 1ML VIAL/SYRINGE (J2270) IV ONE (00:45)
[2020-01-24] MEDS ORDERED: NS 1,000 ML IV ONE (00:45)
[2020-01-24 00:51] LABS: BASO % 0.3 % (0.0-1.0); EOS # 0.3 10^3/uL (0.0-0.5); EOS % 2.5 % (0.0-3.0); HEMATOCRIT 41.1 % (36.0-47.0); HEMOGLOBIN 13.7 g/dl (12.0-15.5); LYMPH # 4.3 10^3/uL (1.5-5.0); LYMPH % 36.5 % (24.0-44.0); MEAN CORPUSCULAR HEMOGLOBIN 28.2 pg (27.0-33.0); MEAN CORPUSCULAR HGB CONC 33.3 g/dl (32.0-36.5); MEAN CORPUSCULAR VOLUME 84.6 fl (80.0-96.0); MONO # 0.6 10^3/uL (0.0-0.8); MONO % 5.3 % (0.0-5.0); NEUTROPHILS # 6.5 10^3/uL (1.5-8.5); PLATELET COUNT, AUTOMATED 345 10^3/uL (150-450); RED BLOOD COUNT 4.86 10^6/uL (4.00-5.40); WHITE BLOOD COUNT 11.9 10^3/uL (4.0-10.0)
[2020-01-24 01:21] LABS: ALBUMIN 3.8 GM/DL (3.2-5.2); ALT/SGPT 39 U/L (12-78); BILIRUBIN,DIRECT < 0.1 MG/DL (0.0-0.2); BILIRUBIN,TOTAL 0.3 MG/DL (0.2-1.0); LIPASE 157 U/L (73-393); TOTAL PROTEIN 7.2 GM/DL (6.4-8.2)
--- NOTE | 2020-01-24 01:34 | REPVR ---
PROCEDURE INFORMATION: Exam: US Abdomen, Limited; Right Upper Quadrant Exam date and time: 01/24/2020 1:12 AM Age: 24 years old Clinical indication: Abdominal pain; Acute; Additional info: Epigastric pain, known stones, sudden worsening pain TECHNIQUE: Imaging protocol: US abdomen. Real time ultrasound with image documentation. Limited exam focused on the right upper quadrant. COMPARISON: GALLBLADDER US 01/21/2020 7:29 AM FINDINGS: Liver: The liver demonstrates no focal defects and measures 22.8 cm. Gallbladder: The gallbladder demonstrates shadowing stones with no wall thickening measuring 2 mm. Common bile duct: The CBD measures 5 mm. Pancreas: The pancreas is normal. Right kidney: The right kidney is normal measuring 12.3 cm with no hydronephrosis. IMPRESSION: 1. There has been little change from 01/21/2020. 2. Cholelithiasis. 3. Hepatomegaly. Electronically signed by: Juma Miller On 01/24/2020 01:34:07 AM
[2020-01-24] MEDS ORDERED: ONDA4TAB6 PO (02:05)
[2020-01-24] MEDS ORDERED: KETOROLAC 30 MG/ML 1ML VIAL IV ONE (02:15)
[2020-01-24 03:15] VITALS: BP 143/91
--- NOTE | 2020-01-24 09:12 | ED PDOC ---
Post-Departure Follow-Up ft angelina ponce faxed fomral report of gb us fo rfu mlg Cameron Alvarez MD Jan 24, 2020 09:12
== END 2020-01-24 03:27 | disposition home or self-care (01) ==
LOC: M ED 23:58
DX: K80.20 Calculus of gallbladder without cholecystitis without obstruction (principal); R11.2 Nausea with vomiting, unspecified; R16.0 Hepatomegaly, not elsewhere classified; F17.200 Nicotine dependence, unspecified, uncomplicated
CPT/HCPCS: 76705; 80047; 80076; 83690; 84702; 85025; 96374; 96375; 99284; J1885

== ENCOUNTER 2020-02-07 12:06 | Emergency (ER) | payer OTHER ==
[~2020-02-07] VITALS: Ht 170.2 cm; Wt 122.2 kg
[~2020-02-07 12:06] MED LIST changes: +ONDA4TAB6 PO
--- NOTE | 2020-02-07 14:22 | REP ---
INDICATION: RUQ abd pain. COMPARISON: 01/24/2020. TECHNIQUE: Real-time sonographic evaluation of right upper quadrant performed. FINDINGS: The gallbladder demonstrates multiple intraluminal calculi as seen on prior study. The patient is tender at the site of the gallbladder with transducer pressure. There is mild gallbladder wall thickening up to 5 mm.. There is no intrahepatic or extrahepatic biliary dilatation, common bile duct measures 7 mm in maximum diameter. This is upper limits of normal. The liver demonstrates mild increased echotexture suggesting mild fatty infiltration. No gross liver masses seen. The pancreas demonstrates homogeneous echotexture with no gross mass. The right kidney demonstrates no hydronephrosis, with a normal size of 12.1 cm in length. No free fluid is seen. IMPRESSION: Multiple gallstones again seen in the gallbladder. Mild gallbladder wall thickening up to 5 mm. Patient is tender at the site of the gallbladder. No significant biliary dilatation. No free fluid. <Electronically signed by Jerome Palumbo > 02/07/20 [id number]
[2020-02-07 14:34] LABS: BASO % 0.3 % (0.0-1.0); EOS # 0.1 10^3/uL (0.0-0.5); EOS % 0.9 % (0.0-3.0); HEMATOCRIT 40.1 % (36.0-47.0); HEMOGLOBIN 13.2 g/dl (12.0-15.5); LYMPH # 2.3 10^3/uL (1.5-5.0); LYMPH % 16.3 % (24.0-44.0); MEAN CORPUSCULAR HGB CONC 32.9 g/dl (32.0-36.5); MONO # 0.6 10^3/uL (0.0-0.8); MONO % 4.4 % (0.0-5.0); NEUTROPHILS % 77.7 % (36.0-66.0); PLATELET COUNT, AUTOMATED 294 10^3/uL (150-450); RED BLOOD COUNT 4.72 10^6/uL (4.00-5.40); WHITE BLOOD COUNT 14.2 10^3/uL (4.0-10.0)
[2020-02-07] MEDS ORDERED: KETOROLAC 30 MG/ML 1ML VIAL IV ONE (15:00)
--- NOTE | 2020-02-07 15:00 | REP ---
INDICATION: Abdominal Pain COMPARISON: None. TECHNIQUE: PA/Lateral FINDINGS: Lungs: Clear, no infiltrate. Heart: Normal in size. Mediastinum: Mediastinal silhouette unremarkable. Pleural angles: Unremarkable.. Bones and soft tissues: Unremarkable. IMPRESSION: No acute pulmonary disease. <Electronically signed by Jerome Palumbo > 02/07/20 [id number]
[2020-02-07 15:02] LABS: ALBUMIN 3.6 GM/DL (3.2-5.2); ALT/SGPT 66 U/L (12-78); BILIRUBIN,DIRECT 0.3 MG/DL (0.0-0.2); BILIRUBIN,TOTAL 0.6 MG/DL (0.2-1.0); BLOOD UREA NITROGEN 9 MG/DL (7-18); CARBON DIOXIDE LEVEL 23 MEQ/L (21-32); CHLORIDE LEVEL 110 MEQ/L (98-107); CK-MB VALUE MASS < 1.0 NG/ML (<3.6); CPK CREATINE PHOSPHOKINASE 87 U/L (26-192); CREATININE FOR GFR 0.77 MG/DL (0.55-1.30); GLOMERULAR FILTRATION RATE > 60.0 (>60); GLUCOSE, FASTING 111 MG/DL (70-100); LIPASE 88 U/L (73-393); MB/CK RELATIVE INDEX 1.15 (< OR =4); SODIUM LEVEL 140 MEQ/L (136-145); TOTAL PROTEIN 6.7 GM/DL (6.4-8.2); TROPONIN I < 0.02 NG/ML (< 0.10)
[2020-02-07] MEDS ORDERED: MORPHINE 4 MG/ML 1ML VIAL/SYRINGE (J2270) IV ONE (16:00)
[2020-02-07 18:59] VITALS: BP 135/79
--- NOTE | 2020-02-08 | ECGEPIP ---
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
== END 2020-02-07 19:04 | disposition home or self-care (01) ==
LOC: M ED 12:06
DX: K80.20 Calculus of gallbladder without cholecystitis without obstruction (principal); R11.2 Nausea with vomiting, unspecified; R19.7 Diarrhea, unspecified; F17.200 Nicotine dependence, unspecified, uncomplicated; R94.31 Abnormal electrocardiogram [ECG] [EKG]
CPT/HCPCS: 36415; 71046; 76705; 80048; 80076; 82550; 82553; 83690; 84484; 84702; 85025; 93005; 96374; 96375; 99284; J1885; J2270

== ENCOUNTER 2020-02-08 05:12 | Inpatient (IN) | payer OTHER ==
[~2020-02-08] VITALS: Ht 170.2 cm; Wt 122.9 kg
[2020-02-08 06:00] LABS: BASO % 0.3 % (0.0-1.0); EOS # 0.2 10^3/uL (0.0-0.5); EOS % 1.2 % (0.0-3.0); HEMOGLOBIN 14.4 g/dl (12.0-15.5); LYMPH # 1.9 10^3/uL (1.5-5.0); MEAN CORPUSCULAR HEMOGLOBIN 28.9 pg (27.0-33.0); MEAN CORPUSCULAR HGB CONC 34.3 g/dl (32.0-36.5); MEAN CORPUSCULAR VOLUME 84.3 fl (80.0-96.0); MONO # 0.7 10^3/uL (0.0-0.8); MONO % 5.3 % (0.0-5.0); NEUTROPHILS # 9.8 10^3/uL (1.5-8.5); NEUTROPHILS % 77.9 % (36.0-66.0); PLATELET COUNT, AUTOMATED 337 10^3/uL (150-450); RED BLOOD COUNT 4.98 10^6/uL (4.00-5.40); WHITE BLOOD COUNT 12.6 10^3/uL (4.0-10.0)
[2020-02-08] MEDS ORDERED: ONDANSETRON 4MG/2ML VIAL IV ONE (06:15)
[2020-02-08] MEDS ORDERED: MORPHINE 4 MG/ML 1ML VIAL/SYRINGE (J2270) IV ONE (06:15)
[2020-02-08] MEDS ORDERED: NS 1,000 ML IV ONE (06:15)
[2020-02-08 06:42] LABS: ALBUMIN 3.8 GM/DL (3.2-5.2); ALT/SGPT 325 U/L (12-78); BILIRUBIN,TOTAL 3.9 MG/DL (0.2-1.0); BLOOD UREA NITROGEN 10 MG/DL (7-18); CARBON DIOXIDE LEVEL 22 MEQ/L (21-32); CHLORIDE LEVEL 108 MEQ/L (98-107); CREATININE FOR GFR 0.86 MG/DL (0.55-1.30); GLOMERULAR FILTRATION RATE > 60.0 (>60); GLUCOSE, FASTING 152 MG/DL (70-100); LIPASE 131 U/L (73-393); POTASSIUM SERUM 4.4 MEQ/L (3.5-5.1); SODIUM LEVEL 138 MEQ/L (136-145); TOTAL PROTEIN 7.3 GM/DL (6.4-8.2)
[2020-02-08 06:47] LABS: CK-MB VALUE MASS < 1.0 NG/ML (<3.6); CPK CREATINE PHOSPHOKINASE 111 U/L (26-192); TROPONIN I < 0.02 NG/ML (< 0.10)
--- NOTE | 2020-02-08 08:43 | REP ---
INDICATION: RUQ abd pain wrapping to back, h/o gallstones COMPARISON: None. TECHNIQUE: Real time novoa scale ultrasound examination using curved array transducer. FINDINGS: A nonmobile stone is identified at the neck of the gallbladder along with sonographic Nath sign suggesting early acute cholecystitis. Multiple smaller gallstones noted within the gallbladder is well without wall thickening or pericholecystic fluid. Common bile duct is upper limits of normal at 6 mm diameter. A 7 mm echogenic focus in the left lobe is noted which may represent small hemangioma. No further hepatic lesions are identified. The pancreas is normal. The right kidney is normal and measures 12.6 x 4.8 x 4.4 cm. IMPRESSION: Nonmobile gallstone along with sonographic Nath sign suggesting early acute cholecystitis. Multiple smaller gallbladder calculi are identified as well. <Electronically signed by Abhay Colin > 02/08/20 [id number]
[2020-02-08] MEDS ORDERED: PIPERACILLIN/TAZOBACTAM SOD 3.375 GM in D5W MINI-BAG PLUS 50 ML IV ONE (10:00)
[2020-02-08] MEDS ORDERED: MORPHINE 2 MG/ML 1ML VIAL (J2270) IV PRN ×2 (10:45)
[2020-02-08] MEDS ORDERED: ONDANSETRON 4MG/2ML VIAL IV PRN (10:45)
[2020-02-08] MEDS: PANTOPRAZOLE 40MG VIAL (C9113 PER 1) IV SCH (13:02)
[2020-02-08] MEDS: NS 1,000 ML IV SCH (13:03)
[2020-02-08 13:15] VITALS: BP 140/83
[2020-02-08] MEDS: PIPERACILLIN/TAZOBACTAM SOD 3.375 GM in D5W MINI-BAG PLUS 50 ML IV SCH ×2 (16:04→22:45)
[2020-02-08] MEDS: KETOROLAC 30 MG/ML 1ML VIAL IV PRN (16:04)
[2020-02-08 18:00] VITALS: BP 116/66
--- NOTE | 2020-02-08 18:37 | CR.PDOC ---
General Date of Consultation: Feb 08, 2020 Referring Provider: VENUS DIXON PA-C Attending Physician: RAZ APARICIO MD Consultation Primary physician: Dr. Davis ( ER [facility]) / Dr. Ulloa Reason for consult: Abdominal pain and suspected CBD stone. HPI: 24-year-old female patient with recent and delivery ( December 2019), presented to ER with symptoms of persistent epigastric and right upper quadrant abdominal pain. Patient was admitted for further management due to labs also showing elevated liver enzymes and Gi was consulted for the same. Patient reports she started having intermittent epigastric and right upper quadrant pain, sometimes radiating to back for the past few weeks and had few ER visits. She was diagnosed with symptomatic gallstone disease and is scheduled to have elective cholecystectomy. This time, patient started having severe episode of epigastric pain and right upper quadrant pain, with nausea and one episode of vomiting in ER. She reports the pain lasted longer but it improved after getting pain medications in ER and when examined by me she reports no recurrence of pain. She also reports no further nausea or vomiting and feeling little hungry. She did not eat anything today due to concern for worsening of pain. Pertinent negative GI symptoms: Patient denies fever, sick contacts, recent travel, diarrhea, loss of appetite, early satiety or unintentional weight loss. No history of hematemesis, melena or hematochezia. Patient reports regular bowel movements. Review of Systems: GI: as stated above CVS: No chest pain, No palpitations, No leg swelling. RS: No Shortness of breath, No Wheezing, no cough ADHESION TESTER: No dizziness, No motor weakness, No sensory problems Hematology: No bruising, No gum bleeding, Musculoskeletal: No joint pain, ambulating well. Skin: No rash : No hematuria, No burning sensation of the urine ENT: No ear discharge/ pain, No dysphagia. Eyes: No photophobia. Jaundice Home medications: reviewed. Antithrombotic agents: -None Medical h/o: As above. Surgical h/o: None on abdomen. Social h/o: Alcohol: -Denies, smoking: active smoker. IVDA/ drugs: Denies. Family h/o of GI cancers - None Prior Endoscopies: None in [facility] Prior GI evaluations: -None in [facility] Exam: Vitals: reviewed General: Alert and oriented x 3, not in distress HEENT: NO pallor, no icterus. Normal oropharynx, NO cervical lymph nodes. Chest: symmetric with bilateral clear air entry, CVS: S1, S2 heard, normal, no murmurs . Abdomen: non-distended, no surgical scars, soft, non-tender, no palpable masses, normal bowel sounds heard. Rectal exam: Patient refused / Deferred at this time in view of scheduled colonoscopy. Extremities: no pedal edema, pulses palpable. ADHESION TESTER: no focal motor or sensory deficits. Moves all extremities Skin: no rash. Labs: reviewed. Imaging: reviewed. Ultrasound abdomen showed choleic lithiasis with possible early cholecystitis and CBD 6 mm. Impression: -- Persistent epigastric and right upper quadrant abdominal pain with abnormal liver panel and known gallstones and suspected early cholecystitis on Ultrasound abdomen with normal CBD -- DDx-- Acute cholecystitis with Passed CBD stone vs retained CBD stone -- needs further evaluation. Recommendations: - Patient educated about the test results, possible differential diagnoses and All questions answered. - IV fluid and antibiotics as per primary team. - Will obtain interval Liver panel - NPO or sips of water for now. - At this time the suspicion for retain CBD stone is not very high based on the clinical symptoms. But based on the persistent elevated live panel, will consider MRCP first and then based on clinical course will consider ERCP. - The procedure, indications, risks (acute pancreatitis and its complications, b leeding, perforation, infection, hypotension, respiratory depression, allergy, need for endotracheal intubation, surgery, colostomy, cardiac arrest, even ), benefits, limitations (e.g., missing a lesion), and all other alternatives (including no intervention) were explained to the patient who u nderstood and agreed for the procedure. Printed material provided to patient and all questions answered. - NPO after midnight Plan of care discussed with patient and primary team. Patient verbalized understanding and agreed with the plan. Vital Signs/I&O Vital Signs Date Time Temp Pulse Resp B/P (MAP) Pulse Ox O2 Delivery O2 Flow Rate FiO2 02/08/20 13:15 96.9 60 17 140/83 (102) 99 Room Air Laboratory Data Labs 24H Laboratory Tests 2 02/08/20 05:38: Immature Granulocyte % (Auto) 0.3, Neutrophils (%) (Auto) 77.9H, Lymphocytes (%) (Auto) 15.0L, Monocytes (%) (Auto) 5.3H, Eosinophils (%) (Auto) 1.2, Basophils (%) (Auto) 0.3, Neutrophils # (Auto) 9.8H, Lymphocytes # (Auto) 1.9, Monocytes # (Auto) 0.7, Eosinophils # (Auto) 0.2, Basophils # (Auto) 0.0, Nucleated Red Blood Cells % (auto) 0.0, Anion Gap 8, Glomerular Filtration Rate > 60.0, Calcium Level 9.0, Total Bilirubin 3.9#H, Direct Bilirubin 2.0H, Aspartate Amino Transf (AST/SGOT) 308H, Alanine Aminotransferase (ALT/SGPT) 325H, Alkaline Phosphatase 207H, Total Creatine Kinase 111, Creatine Kinase MB < 1.0, Creatine Kinase MB Relative Index 0.90, Troponin I < 0.02, Total Protein 7.3, Albumin 3.8, Albumin/Globulin Ratio 1.1L, Lipase 131 02/08/20 10:28: Coronavirus (COVID-19)(PCR) NEGATIVE CBC/BMP Laboratory Tests 02/08/20 05:38 Allergies Coded Allergies: No Known Allergies (Unverified , 02/08/20) Home Medications No Active Prescriptions or Reported Meds RAZ APARICIO MD Feb 08, 2020 18:37
[2020-02-08 19:26] LABS: ALBUMIN 3.2 GM/DL (3.2-5.2); BILIRUBIN,TOTAL 4.4 MG/DL (0.2-1.0); TOTAL PROTEIN 6.6 GM/DL (6.4-8.2)
--- NOTE | 2020-02-08 20:59 | ECGEPIP ---
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
[2020-02-08 22:00] VITALS: BP 125/86
--- NOTE | 2020-02-08 22:39 | REPVR ---
PROCEDURE INFORMATION: Exam: MR Abdomen Without Contrast Exam date and time: 02/08/2020 9:51 PM Age: 24 years old Clinical indication: Nausea; Additional info: Patient with elevated liver enzymes, R/O cbd stone TECHNIQUE: Imaging protocol: MR of the abdomen without contrast. 3D rendering (Not supervised by radiologist): MIP and/or 3D reconstructed images were created by the technologist. COMPARISON: GALLBLADDER US 2020-02-08 07:33 FINDINGS: Liver: Hepatic steatosis. No masses or intrahepatic biliary duct dilatation. Gallbladder and bile ducts: Innumerable gallstones within a moderately enlarged gallbladder. Gallbladder wall mildly thickened suggesting acute cholecystitis. Couple small focal T2 hypointensities within the cystic ducts compatible with choledocholithiasis. Suspected 2-3 mm about 3 possible stones within the common biliary duct. Borderline enlarged common biliary duct measuring up to 7 mm. Pancreas: Unremarkable. No ductal dilation. Spleen: Unremarkable. No splenomegaly. Adrenals: Unremarkable. No mass. Kidneys and ureters: Unremarkable. No solid mass. No hydronephrosis. Stomach and bowel: Visualized stomach and intestines are unremarkable. Intraperitoneal space: No free fluid. Arteries: No abdominal aortic aneurysm. Bones/joints: Unremarkable. Soft tissues: Unremarkable. IMPRESSION: 1. Innumerable gallstones within a moderately enlarged gallbladder. Gallbladder wall mildly thickened suggesting acute cholecystitis. 2. Couple small focal T2 hypointensities within the cystic ducts compatible with choledocholithiasis. Suspected 2-3 mm about 3 possible stones within the common biliary duct. Electronically signed by: Adán Almendarez On 02/08/2020 22:39:43 PM
[2020-02-09 02:00] VITALS: BP 131/80
[2020-02-09] MEDS: PIPERACILLIN/TAZOBACTAM SOD 3.375 GM in D5W MINI-BAG PLUS 50 ML IV SCH ×4 (04:16→22:33)
[2020-02-09] MEDS: NS 1,000 ML IV SCH ×4 (04:17→17:56)
[2020-02-09 06:00] VITALS: BP 135/65
[2020-02-09 07:26] LABS: HEMATOCRIT 37.7 % (36.0-47.0); MEAN CORPUSCULAR HEMOGLOBIN 28.1 pg (27.0-33.0); MEAN CORPUSCULAR HGB CONC 32.6 g/dl (32.0-36.5); MEAN CORPUSCULAR VOLUME 86.3 fl (80.0-96.0); PLATELET COUNT, AUTOMATED 272 10^3/uL (150-450); RED BLOOD COUNT 4.37 10^6/uL (4.00-5.40); WHITE BLOOD COUNT 8.1 10^3/uL (4.0-10.0)
[2020-02-09 07:30] LABS: HEMOGLOBIN 12.3 g/dl (12.0-15.5)
[2020-02-09 07:49] LABS: ALBUMIN 3.1 GM/DL (3.2-5.2); ALT/SGPT 381 U/L (12-78); BILIRUBIN,TOTAL 3.4 MG/DL (0.2-1.0); BLOOD UREA NITROGEN 10 MG/DL (7-18); CALCIUM LEVEL 8.6 MG/DL (8.5-10.1); CARBON DIOXIDE LEVEL 24 MEQ/L (21-32); CHLORIDE LEVEL 113 MEQ/L (98-107); CREATININE FOR GFR 1.01 MG/DL (0.55-1.30); GLOMERULAR FILTRATION RATE > 60.0 (>60); GLUCOSE, FASTING 108 MG/DL (70-100); LIPASE 147 U/L (73-393); POTASSIUM SERUM 3.9 MEQ/L (3.5-5.1); SODIUM LEVEL 143 MEQ/L (136-145); TOTAL PROTEIN 6.3 GM/DL (6.4-8.2)
[2020-02-09] MEDS: PANTOPRAZOLE 40MG VIAL (C9113 PER 1) IV SCH (09:48)
[2020-02-09 10:00] VITALS: BP 131/66
[2020-02-09] MEDS ORDERED: ISOVUE-300 61% 50ML VIAL As Ordered ONE (15:26)
--- NOTE | 2020-02-09 17:35 | ROOR ---
Patient Name: Monroe Barreto Procedure Date: 02/09/2020 3:59 PM Date of : 1995 Age: 24 Room: Main OR Gender: Female Note Status: Finalized Procedure: ERCP Indications: Bile duct stone(s), Abnormal MRCP, Jaundice Providers: Robbie Jain MD Referring MD: 2. Inpatient 2. Inpatient Requesting Provider: Medicines: General Anesthesia Complications: No immediate complications. Procedure: Pre-Anesthesia Assessment: - Prior to the procedure, a History and Physical was performed, and patient medications and allergies were reviewed. The patient is competent. The risks and benefits of the procedure and the sedation options and risks were discussed with the patient. All questions were answered and informed consent was obtained. Patient identification and proposed procedure were verified by the physician, the nurse and the anesthesiologist in the procedure room. Mental Status Examination: alert and oriented. Airway Examination: normal oropharyngeal airway and neck mobility. Respiratory Examination: clear to auscultation. CV Examination: normal. Prophylactic Antibiotics: The patient does not require prophylactic antibiotics. Prior Anticoagulants: The patient has taken no previous anticoagulant or antiplatelet agents. ASA Grade Assessment: II - A patient with mild systemic disease. After reviewing the risks and benefits, the patient was deemed in satisfactory condition to undergo the procedure. The anesthesia plan was to use monitored anesthesia care (MAC). Immediately prior to administration of medications, the patient was re-assessed for adequacy to receive sedatives. The heart rate, respiratory rate, oxygen saturations, blood pressure, adequacy of pulmonary ventilation, and response to care were monitored throughout the procedure. The physical status of the patient was re-assessed after the procedure. The Duodenoscope was introduced through the mouth, and advanced to the duodenum and used to inject contrast into the bile duct. The ERCP was accomplished without difficulty. The patient tolerated the procedure well. Findings: The early childhood aide classroom film was normal. The esophagus was successfully intubated under direct vision. The scope was advanced to a normal major papilla in the descending duodenum without detailed examination of the pharynx, larynx and associated structures, and upper GI tract. The upper GI tract was grossly normal. A 0.035 inch x 260 cm straight Hydra Jagwire was passed into the biliary tree. The short-nosed traction sphincterotome was passed over the guidewire and the bile duct was then deeply cannulated. Contrast was injected. The main bile duct was mildly dilated and diffusely dilated, acquired. The largest diameter was 8 mm. Biliary sphincterotomy was made with a monofilament traction (standard) sphincterotome using ERBE electrocautery. There was no post-sphincterotomy bleeding. The biliary tree was swept with a 9 mm balloon starting at the bifurcation. Sludge was swept from the duct. Occlusion cholangiogram at the end of the procedure did not show any residual filling defects. Pancreatic duct was neither cannulated nor opacified. Impression: - The entire main bile duct was mildly dilated, acquired. - A biliary sphincterotomy was performed. - The biliary tree was swept and sludge was found. Recommendation: - Return patient to hospital an for ongoing care. - Patient has a contact number available for emergencies. The signs and symptoms of potential delayed complications were discussed with the patient. Return to normal activities tomorrow. Written discharge instructions were provided to the patient. - Avoid aspirin and nonsteroidal anti-inflammatory medicines for 3 days. - Clear liquid diet. - Refer to a surgeon for cholecystectomy. - Return to primary care physician. - Return to GI clinic if persistent symptoms or new symptoms. Procedure Code(s): --- Professional --- 05248, Endoscopic retrograde cholangiopancreatography (ERCP); with removal of calculi/debris from biliary/pancreatic duct(s) 05555, Endoscopic retrograde cholangiopancreatography (ERCP); with sphincterotomy/papillotomy Diagnosis Code(s): --- Professional --- K80.50, Calculus of bile duct without cholangitis or cholecystitis without obstruction R17, Unspecified jaundice K83.8, Other specified diseases of biliary tract R93.2, Abnormal findings on diagnostic imaging of liver and biliary tract CPT copyright 2019 [employer]. All rights reserved. The codes documented in this report are preliminary and upon manual lathe machinist review may be revised to meet current compliance requirements. Robbie Jain MD Robbie Jain MD 02/09/2020 5:35:01 PM Electronically signed by Robbie Jain MD Number of Addenda: 0 Note Initiated On: 02/09/2020 3:59 PM Estimated Blood Loss: Estimated blood loss: none.
--- NOTE | 2020-02-09 17:38 | REP ---
INDICATION: ERCP. COMPARISON: MRI 02/08/2020. TECHNIQUE: Multiple C-arm views are performed of the right upper quadrant during ERCP. FINDINGS: The common bile duct is catheterized. Contrast partially opacifies the common bile duct.It does not appear dilated. The central intrahepatic ducts are partially opacified as well. Catheter manipulation is performed. IMPRESSION: 28 seconds of fluoroscopy time was utilized. <Electronically signed by Jerome Palumbo > 02/09/20 [id number]
[2020-02-09] MEDS ORDERED: PERCOCET 5MG/325MG TAB PO PRN (17:45)
[2020-02-09] MEDS ORDERED: LR 1,000 ML IV SCH (17:45)
[2020-02-09] MEDS ORDERED: ONDANSETRON 4MG/2ML VIAL IV PRN (17:45)
[2020-02-09] MEDS ORDERED: METOCLOPRAMIDE INJ 10MG/2ML VIAL (J2765 PER 1) IV PRN (17:45)
[2020-02-09] MEDS ORDERED: fentaNYL 100 MCG/2 ML INJECTION (J3010) IV PRN (17:45)
[2020-02-09] MEDS ORDERED: HYDROMORPHONE HCL 0.5 MG/ 0.5 ML SYRINGE (J1170 PER 1) IV PRN (17:45)
[2020-02-09 18:00] VITALS: BP 118/61
[2020-02-09 22:00] VITALS: BP 127/66
[2020-02-09] MEDS: KETOROLAC 30 MG/ML 1ML VIAL IV PRN (22:32)
[2020-02-10 02:00] VITALS: BP 127/78
[2020-02-10] MEDS: NS 1,000 ML IV SCH ×4 (04:08→23:43)
[2020-02-10] MEDS: PIPERACILLIN/TAZOBACTAM SOD 3.375 GM in D5W MINI-BAG PLUS 50 ML IV SCH ×4 (04:08→21:18)
[2020-02-10 06:00] VITALS: BP 131/76
[2020-02-10 06:44] LABS: HEMATOCRIT 37.4 % (36.0-47.0); HEMOGLOBIN 12.8 g/dl (12.0-15.5); MEAN CORPUSCULAR HEMOGLOBIN 29.4 pg (27.0-33.0); MEAN CORPUSCULAR HGB CONC 34.2 g/dl (32.0-36.5); PLATELET COUNT, AUTOMATED 305 10^3/uL (150-450); RED BLOOD COUNT 4.35 10^6/uL (4.00-5.40); WHITE BLOOD COUNT 11.7 10^3/uL (4.0-10.0)
[2020-02-10 07:08] LABS: ALBUMIN 3.2 GM/DL (3.2-5.2); ALT/SGPT 255 U/L (12-78); BLOOD UREA NITROGEN 8 MG/DL (7-18); CALCIUM LEVEL 8.7 MG/DL (8.5-10.1); CARBON DIOXIDE LEVEL 23 MEQ/L (21-32); CHLORIDE LEVEL 111 MEQ/L (98-107); CREATININE FOR GFR 0.84 MG/DL (0.55-1.30); GLOMERULAR FILTRATION RATE > 60.0 (>60); GLUCOSE, FASTING 116 MG/DL (70-100); LIPASE 75 U/L (73-393); POTASSIUM SERUM 4.1 MEQ/L (3.5-5.1); SODIUM LEVEL 142 MEQ/L (136-145); TOTAL PROTEIN 6.4 GM/DL (6.4-8.2)
--- NOTE | 2020-02-10 07:52 | HPE ---
DATE OF CONSULTATION: 02/08/2020 CHIEF COMPLAINT: Abdominal pain, probable common bile duct stone. BRIEF HISTORY OF PRESENT ILLNESS: Patient is a 24-year-old female who has had multiple episodes of symptomatic gallstones and presents with some elevated liver function tests after being seen in the office yesterday. The patient has had some persistent epigastric, right upper quadrant pain. Since being seen in the office it was getting progressively worse and presents with pain in the epigastric area radiating all across her right upper quadrant into her mid-back. She states that she has had some nausea and vomiting, but after getting some pain medication she is feeling better, but still having some significant epigastric pain and right upper quadrant pain. PAST MEDICAL HISTORY: None. PAST SURGICAL HISTORY: 1. Right hand surgery. 2. [place] teeth extraction. 3. Tonsillectomy. MEDICATIONS: None. PHYSICAL EXAMINATION: Exam reveals an obese white female, looks stated age. HEENT: Unremarkable. Neck: Supple without adenopathy. Lungs: Clear to auscultation without crackles, wheezes or rhonchi. Heart: Regular, without murmur. Abdomen: Soft, obese, tender throughout the epigastric area and the right upper quadrant all along the right subcostal area. Extremities: Warm and well perfused. No other hernias, masses or abdominal findings are appreciated. IMPRESSION AND PLAN: Patient has elevated liver function tests and given her clinical presentation of mid-epigastric pain as well as right upper quadrant pain radiating to her back it is most likely that she has a common bile duct stone given these liver function tests abnormalities. We will get GI to see her and make additional recommendations. I anticipate she will get an ERCP and then once this is performed the question is whether to perform this laparoscopic cholecystectomy prior to discharge or whether to discharge her to home. She does have a laparoscopic cholecystectomy scheduled for Friday with Dr. Red, but we will wait GI's recommendations and see where we will go from there. DEV
[2020-02-10] MEDS: PANTOPRAZOLE 40MG VIAL (C9113 PER 1) IV SCH (09:14)
[2020-02-10 10:00] VITALS: BP 131/75
[2020-02-10 14:00] VITALS: BP 134/77
--- NOTE | 2020-02-10 15:29 | IPN ---
DATE: 02/09/2020 SUBJECTIVE: Patient was admitted overnight, looking better this morning from a white count standpoint; however, her liver function tests are still elevated and imaging reveals probable common bile duct stones as well as cystic duct stones. She is still uncomplicated with pain in the epigastric area and the right subcostal although it is not as severe as it originally was, still a lot of pressure is what she is describing. She has been afebrile and she has ERCP planned for today and this is from 02/08 this note. PHYSICAL EXAMINATION: Vitals are stable. Physical exam reveals abdomen mildly tender in the epigastric area along the right subcostal area. No significant guarding, rebound or peritoneal signs are appreciated. IMPRESSION AND PLAN: The patient has evidence of common bile duct stones getting an ERCP today and the plan will be to keep her on a clear liquid diet after the ERCP for Dr. Red to proceed with his laparoscopic cholecystectomy on Friday and we will make her n.p.o. prior to the procedure. Otherwise continue with supportive care at this time with antibiotics as appropriate. DEV
--- NOTE | 2020-02-10 15:30 | IPN ---
DATE: 02/10/2020 SUBJECTIVE: Patient tolerated her ERCP quite well last night, feels really good this morning, not having any abdominal pain or discomfort. No nausea, no vomiting. Her liver function tests have come down quite nicely. No evidence of ERCP pancreatitis. PHYSICAL EXAMINATION: Physical exam reveals a benign abdomen today. Her vitals have been stable. Urine output has been good. IMPRESSION AND PLAN: Patient seems to be making some good progress at this time. I have discussed with her keeping her on clear liquid today to avoid any additional chances to get stones down into the ductal system and we will make her n.p.o. after midnight tonight for her laparoscopic cholecystectomy with Dr. Red tomorrow morning. Otherwise she is accepting of this and understands her plan for her. Given her overall significant improvement I anticipate she will be able to be discharged home after her laparoscopic cholecystectomy tomorrow. DEV
[2020-02-10 18:00] VITALS: BP 134/74
[2020-02-10 22:00] VITALS: BP 134/73
[2020-02-11] VITALS (7 sets, daily range): BP systolic 125–143; BP diastolic 67–83
[2020-02-11] MEDS: PIPERACILLIN/TAZOBACTAM SOD 3.375 GM in D5W MINI-BAG PLUS 50 ML IV SCH ×2 (03:36→11:56)
[2020-02-11] MEDS ORDERED: MIDAZOLAM INJ 2MG/2ML VIAL (J2250 PER 1MG) As Ordered ONE (06:50)
[2020-02-11] MEDS ORDERED: fentaNYL 100 MCG/2 ML INJECTION (J3010) As Ordered ONE ×3 (06:51→10:11)
[2020-02-11] MEDS ORDERED: propofoL 200 MG/20 ML VIAL As Ordered ONE ×2 (06:52→08:31)
[2020-02-11] MEDS ORDERED: ROCURONIUM BROMIDE 50 MG/5 ML VIAL As Ordered ONE ×2 (06:54→08:44)
[2020-02-11] MEDS ORDERED: METOCLOPRAMIDE INJ 10MG/2ML VIAL (J2765 PER 1) As Ordered ONE (06:59)
[2020-02-11] MEDS ORDERED: KETOROLAC 60MG 2ML VIAL As Ordered ONE (06:59)
[2020-02-11] MEDS ORDERED: ONDANSETRON 4MG/2ML VIAL As Ordered ONE (06:59)
[2020-02-11] MEDS ORDERED: SUGAMMADEX SODIUM 500 MG/5 ML VIAL (BRIDION) As Ordered ONE (06:59)
[2020-02-11] MEDS ORDERED: dexameTHASONE 4 MG/ML 1ML VIAL (J1100 PER 1MG) As Ordered ONE (06:59)
[2020-02-11] MEDS ORDERED: ACETAMINOPHEN 1000MG 100ML IV BTL (OFIRMEV) (J0131 PER 10MG) As Ordered ONE (07:00)
[2020-02-11] MEDS ORDERED: LIDOCAINE 2% 100MG/5ML SDV (FOR ANES.) As Ordered ONE (07:01)
[2020-02-11 07:08] LABS: HEMATOCRIT 35.5 % (36.0-47.0); HEMOGLOBIN 11.6 g/dl (12.0-15.5); MEAN CORPUSCULAR HEMOGLOBIN 28.4 pg (27.0-33.0); MEAN CORPUSCULAR HGB CONC 32.7 g/dl (32.0-36.5); PLATELET COUNT, AUTOMATED 280 10^3/uL (150-450); RED BLOOD COUNT 4.08 10^6/uL (4.00-5.40); WHITE BLOOD COUNT 8.8 10^3/uL (4.0-10.0)
[2020-02-11] MEDS ORDERED: BUPIVACAINE HCL 0.25% 30ML VIAL As Ordered ONE (07:12)
[2020-02-11 07:32] LABS: ALT/SGPT 164 U/L (12-78); BILIRUBIN,TOTAL 0.9 MG/DL (0.2-1.0); BLOOD UREA NITROGEN 6 MG/DL (7-18); CALCIUM LEVEL 8.3 MG/DL (8.5-10.1); CARBON DIOXIDE LEVEL 23 MEQ/L (21-32); CHLORIDE LEVEL 113 MEQ/L (98-107); CREATININE FOR GFR 0.88 MG/DL (0.55-1.30); GLOMERULAR FILTRATION RATE > 60.0 (>60); GLUCOSE, FASTING 102 MG/DL (70-100); LIPASE 103 U/L (73-393); POTASSIUM SERUM 3.4 MEQ/L (3.5-5.1); SODIUM LEVEL 145 MEQ/L (136-145); TOTAL PROTEIN 5.9 GM/DL (6.4-8.2)
[2020-02-11] MEDS ORDERED: LABETALOL 100MG/20ML VIAL As Ordered ONE (08:27)
[2020-02-11] MEDS ORDERED: NORCO, ANEXSIA 5/325MG TABLET (HYDROcodone/ACETAMINOPHEN) PO PRN (10:00)
[2020-02-11] MEDS ORDERED: MORPHINE 2 MG/ML 1ML VIAL (J2270) IV PRN (10:00)
[2020-02-11] MEDS ORDERED: ACETAMINOPHEN 500 MG TAB PO PRN (10:00)
[2020-02-11] MEDS ORDERED: IBUPROFEN 600MG TAB PO PRN (10:00)
[2020-02-11] MEDS ORDERED: ONDANSETRON 4MG/2ML VIAL IV PRN (10:15)
[2020-02-11] MEDS ORDERED: oxyCODONE 5MG TAB PO PRN ×2 (10:15)
[2020-02-11] MEDS ORDERED: LR 1,000 ML IV SCH (10:15)
[2020-02-11] MEDS: fentaNYL 100 MCG/2 ML INJECTION (J3010) IV PRN ×4 (10:19→10:34)
[2020-02-11] MEDS: PANTOPRAZOLE 40MG VIAL (C9113 PER 1) IV SCH (11:56)
--- NOTE | 2020-02-14 11:12 | RO ---
DATE OF OPERATION: 02/11/2020 PREOPERATIVE DIAGNOSIS: Cholelithiasis with recent choledocholithiasis. POSTOPERATIVE DIAGNOSIS: Cholelithiasis with recent choledocholithiasis. PROCEDURE: Laparoscopic cholecystectomy. SURGEON: John Red MD ANESTHESIA: General. INDICATIONS FOR PROCEDURE: Patient is a 24-year-old woman who was seen in the office last week for episodic biliary colic. She was seen in the emergency department briefly on the 06 of February with pain which seemed to have resolved but she returned to the ER the following morning with severe pain and actually had elevations of her LFTs at that time. She underwent evaluation that confirmed choledocholithiasis and underwent an ERCP on the . She is now for cholecystectomy. OPERATIVE PROCEDURE: The patient was brought to the operating room and placed on the table in a supine position. The patients abdomen was prepped and draped in a sterile fashion. A 0.25% Marcaine was infiltrated at the trocar sites as needed. Initially a short transverse incision was made in the left upper quadrant. A Veress needle was inserted and after a positive hanging drop test, the abdomen was inflated with carbon dioxide gas. After reaching the inflation limit of 15 mmHg, a 5-mm port was placed over a 5-mm scope and advanced through the abdominal wall without difficulty. Initial examination showed no evidence of trocar injury. The liver appeared normal. The gallbladder appeared mildly distended but not erythematous. Visualized portions of the stomach and the small and large bowel were normal. The patient was tilted to a slight reverse Trendelenburg position and rolled to the left. Inspection of the abdominal wall around the umbilicus suggested some generalized weakness in an area surrounding the umbilicus with a possible start of several small hernias in this area. I elected not to place the next trocar through this area and shifted it to the right into a paramedian position slightly above the level of the umbilicus. A longitudinal incision was made and an 11 mm port was placed. Two additional 5 mm ports were placed in the right upper quadrant. Graspers were inserted. The gallbladder was grasped and elevated. The gallbladder wall did appear somewhat edematous. Dissection was begun near the gallbladder neck. A hook cautery was used to incise the peritoneum circumferentially. Dissection was then carried through the edematous pericholecystic tissues. The smaller vessels were cauterized. A single branch that appeared consistent with a cholecystic artery was doubly clipped and divided. The cystic duct was then clearly dissected from surrounding tissues and this was doubly clipped and divided. The gallbladder was then dissected free from the gallbladder bed using the spatula cautery. The gallbladder was not perforated in the course of dissection. The gallbladder was placed in an Endopouch. The right upper quadrant was irrigated and inspected. There was no evidence or bleeding or bile leak. The patient was returned to a flat position and the abdomen was deflated and the trocars were removed. The incision of the 11 mm port was extended longitudinally and deepened to the fascia which was also opened along the midline. The rectus muscle fibers were spread and the gallbladder was delivered. There were multiple stones of varying sizes palpable within the gallbladder and this was sent for permanent pathology. The posterior rectus sheath was closed with interrupted simple sutures of 2-0 Vicryl. The anterior sheath was likewise closed with interrupted simple sutures of 2-0 Vicryl. The skin incisions were all closed with buried 4-0 Vicryl and Steri-Strips. Light dressings were applied. The patient tolerated the procedure well without apparent complication. She was awakened in the operating room, extubated, and moved to the recovery room in stable condition. DEV
== END 2020-02-11 14:56 | disposition home or self-care (01) | DRG 419 ==
LOC: M ED 05:12 → M ED INP 10:33 → ENRESERV 10:56 → M MSPAV 13:15
PROVIDERS: ADMIT Surgery; ATTEND Surgery
PROC: 0FT44ZZ Resection of Gallbladder, Percutaneous Endoscopic Approach (ICD-10-PCS; principal; 2020-02-09 15:00)
DX: K80.20 Calculus of gallbladder without cholecystitis without obstruction (principal)